=== PATIENT | female | born 1985 | race Caucasian/White ===

== ENCOUNTER 2022-05-26 08:58 | Day surgery (SDC) | payer OTHER ==
[~2022-05-26] VITALS: Ht 152.4 cm; Wt 105.0 kg
--- NOTE | 2022-05-26 08:50 | NUR ---
PT AMBULATED TO ROOM, PT HAS AND CHILD, ALK PARTIES HAVE BENE EXPLAINED OF POC. PT HAS BEEN ORIENTED TO ROOM AND CALL LIGHT SYSTEM. PT HAS BEEN PLACED ON FALL PRECAUTIONS. PT IS A&OX4, PT HAS NO C/O PAIN, PT IN NAD. PT IS ABLE TO MAKE NEEDS KNOWN AND HAS CALL LIHT NEAR. WILL CONTINUE TO MONITOR.
[2022-05-26 09:19] LABS: HEMATOCRIT 44.1 % (37.0-47.0); HEMOGLOBIN 15.1 g/dl (12.0-16.0); IMMATURE GRANULOCYTES 0.1 % (0.0-5.0); MEAN CELL VOLUME 95.9 fL CALC (80.0-100.0); MEAN CORPUSCULAR HGB 32.8 pG CALC (26.0-32.0); MEAN CORPUSCULAR HGB CONC 34.2 g/dL CAL (32.0-36.0); NEUT# 7.69 thou/uL (2.00-7.15); RED BLOOD COUNT 4.6 mill/uL (4.20-5.60); RED CELL DISTRI WIDTH 12.1 % (11.5-15.5)
[2022-05-26 09:37] LABS: ALBUMIN 4.4 g/dL (3.2-5.0); ALKALINE PHOSPHATASE 62 u/l (38-126); ANION GAP 14 (6-22 (CALC)); BILIRUBIN, TOTAL 0.5 mg/dL (0.0-1.4); BUN 5 mg/dL (7-17); BUN/CREATININE RATIO 7 (12-20 (CALC)); CARBON DIOXIDE 26 mmol/l (22-30); CHLORIDE 103 mmol/l (95-108); CREATININE 0.7 mg/dL (0.5-1.0); GFR FOR AFR.AMER. > 60 ML/MIN (>=60 (CALC)); GFR OTHER RACES > 60 ML/MIN (>=60 (CALC)); POTASSIUM 4.3 mmol/l (3.5-5.1); SGOT/AST 19 u/l (14-36); SODIUM 139 mmol/l (137-146)
[2022-05-26 09:50] VITALS: BP 144/97
[2022-05-26] MEDS ORDERED: TRAZODONE50 MG PO (09:52)
[2022-05-26] MEDS ORDERED: VENTOLIN HFA IN (09:53)
[2022-05-26] MEDS ORDERED: LISINOPRIL40 MG PO (09:54)
--- NOTE | 2022-05-26 11:04 | NUR ---
PT HAS BEEN REASSESSED, PT IS SLEEPIN AROUSABLE AND HAS BEEN MEDICATED PER DR, WILL CONTINUE TO MONITOR.
--- NOTE | 2022-05-26 12:20 | NUR ---
Induction Note Patient to [facility] procedure room. Time out performed at 1220. Patient placed on monitors, Roshni hugger, bilateral wrist restraints applied for ET tube protection. Versed 5mg given IV push at 1221 Tourniquet applied to RIHT arm Lidocaine 100mg given [id number] IV push followed by Rocoronium 10mg at 1223 IV push and held for 90 seconds. Propofol bolus of 160mg given at 1225 IV push. Succinylcholine 80mg given IV push at 1226. Smooth intubation with 7.5 ETT. Positive CO2. Positive Auscultation for air exchange. Patient placed on ventilator for spontaneous ventilation. Placed on Propofol IV drip at 1227. OG inserted. Positive air on auscultation. Positive gastric content. Stomach washed at this time.
--- NOTE | 2022-05-26 12:35 | NUR ---
OG close note Stomach washed at this time. Naltrexone 50 mg with Clonidine 0.2 mg via OG tube. OG will be clamped for 45 minutes.
--- NOTE | 2022-05-26 13:20 | NUR ---
OG open note OG open at this time. Gastric content draining into drainage bag. OG to drain for 45 minutes. Propofol will be titrated down based on patient.
--- NOTE | 2022-05-26 14:05 | NUR ---
OG close note Stomach washed at this time. Naltrexone 50 mg with Clonidine 0.2 mg via OG tube. OG will be clamped for 45 minutes.
--- NOTE | 2022-05-26 15:40 | NUR ---
OG close note Stomach washed at this time. Naltrexone 50 mg with Clonidine 0.2 mg via OG tube. OG will be clamped for 45 minutes.
[2022-05-26] MEDS ORDERED: NALTREXONE50 MG PO (16:15)
[2022-05-26] MEDS ORDERED: KLONOPIN2 MG PO (16:16)
[2022-05-26] MEDS ORDERED: CLONIDINE0.1 MG PO (16:17)
--- NOTE | 2022-05-26 18:15 | NUR ---
OG close note Stomach washed at this time. Naltrexone 0 mg with Clonidine 0.1 mg via OG tube. OG will be clamped for 45 minutes.
--- NOTE | 2022-05-26 19:02 | NUR ---
Extubation note Closing medications given Benadryl 50mg IV push, Decadron 10mg IV push,Magnesium 4 grams IV, Zofran 8mg IV push, Octreotide 100mcg SC. Stomach washed out prior to extubation. Suctioned gastric content. OG removed. Patient extubated. Propofol Discontinued. Wrist restraints removed. Roshni hugger Removed. See ANR Moderate sedate recovery record for further notes and assessment.
--- NOTE | 2022-05-26 19:35 | NUR ---
REPORT GIVEN TO BENOIT AMBROCIO PT IS AWAKE AND MOVING PT BED ALARM IS ACTIVE PT IS ON 2LNC. PT HAS 125 LR INFUSIN TO RIGHT WRIST.
[2022-05-26 19:45] VITALS: BP 119/79
--- NOTE | 2022-05-26 20:35 | NUR ---
PATIENT SITTING UP IN BED. RECEIVED HALDOL PRN PER ORDER INDICATED. PATIENT ALSO RECEIVED PRN TORADOL FOR LEG PAIN. PATIENT ALERT, ABLE TO MAKE NEEDS KNOWN. NEEDS REDIRECTION OFTEN. BED IN LOW POSITION. BED ALARM ACTIVE. ALREADY DRINKING SIPS OF WATER.
--- NOTE | 2022-05-26 20:45 | NUR ---
NOTIFIED PROVIDER OF PATIENTS STATUS. INFORMED OF PRN MEDICATION GIVEN. NEW ORDERS RECEIVED. SEE EMAR.
[2022-05-26 22:37] VITALS: BP 142/101
[2022-05-26 22:39] VITALS: BP 139/94
--- NOTE | 2022-05-26 23:25 | NUR ---
PATIENT REMAINS ALERT AND ABLE TO MAKE NEEDS KNOWN. HAS SLEPT FOR PERIODS AT A TIME. PATIENT IS PLEASANT. SHE DOES NEED REDIRECTION AT TIMES. LEGS APPEAR MORE CALM. TRANSFERS WITH SUPERVISION TO [facility]. BED REMAINS IN LOW POSITION WITH BED ALARM ACTIVE.
[2022-05-27 03:31] VITALS: BP 132/82
--- NOTE | 2022-05-27 03:48 | NUR ---
PATIENT RECEIVED ALL SCHEDULED MEDICATIONS WITHOUT DIFFICULTY. RESTING IN BED. REMAINS ALERT. BED REMAINS IN LOW POSITION. BED ALARM REMAINS ACTIVE.
[2022-05-27 05:40] LABS: HEMOGLOBIN 15.4 g/dl (12.0-16.0); IMMATURE GRANULOCYTES 0.2 % (0.0-5.0); MEAN CORPUSCULAR HGB 33.3 pG CALC (26.0-32.0); NEUT# 12.88 thou/uL (2.00-7.15); RED BLOOD COUNT 4.63 mill/uL (4.20-5.60); RED CELL DISTRI WIDTH 11.8 % (11.5-15.5)
[2022-05-27 05:48] LABS: ALKALINE PHOSPHATASE 59 u/l (38-126); ANION GAP 14 (6-22 (CALC)); BILIRUBIN, TOTAL 0.6 mg/dL (0.0-1.4); BUN 9 mg/dL (7-17); BUN/CREATININE RATIO 13 (12-20 (CALC)); CARBON DIOXIDE 21 mmol/l (22-30); CHLORIDE 103 mmol/l (95-108); CREATININE 0.7 mg/dL (0.5-1.0); GFR FOR AFR.AMER. > 60 ML/MIN (>=60 (CALC)); GFR OTHER RACES > 60 ML/MIN (>=60 (CALC)); MAGNESIUM 2.2 mg/dL (1.6-2.3); POTASSIUM 4.3 mmol/l (3.5-5.1); SGOT/AST 24 u/l (14-36); SODIUM 134 mmol/l (137-146); TOTAL PROTEIN 6.4 g/dL (6.3-8.2)
[2022-05-27 07:38] VITALS: BP 132/82
--- NOTE | 2022-05-27 08:00 | NUR ---
RECEIVE REPORT FROM [facility]. PATIENT RESTING PLEASANT IN BED AT THIS TIME. VITAL SIGN STABLE. PATIENT IS EDUCATED ABOUD MEDICATIONS AND NURSING PLAN FOR TODAY. PT REFER UNDERSTAND. SAFETY AND FALL PRECAUTIONS IN PLACE. CALL LIGHT WITHIN REACH.
--- NOTE | 2022-05-27 12:08 | NUR ---
PATIENT RESTING STABLE IN THE BED.
--- NOTE | 2022-05-27 13:30 | NUR ---
Discharge instructions given. Patient verbalizes understanding of same. Discharged in condition via to with . All belongings sent with pt.
== END 2022-05-27 13:30 | disposition home or self-care (01) | DRG 897 ==
LOC: ANR 08:58 → ANR-I 08:58 → ANR 10:00 → MS2 16:00 → ANR 05-27 13:30
PROVIDERS: ATTEND Anesthesiology
DX: F11.20 Opioid dependence, uncomplicated (principal)
CPT/HCPCS: J2354